=== PATIENT | male | born 1975 | race Two or more races ===

== ENCOUNTER 2021-10-27 12:35 | Emergency (ER) | payer OTHER ==
[2021-10-27] MEDS ORDERED: NORCO 5-325 TA1 EACH PO (17:07)
== END 2021-10-27 17:30 | disposition home or self-care (01) ==
LOC: FER 12:35
DX: S63.8X2A Sprain of other part of left wrist and hand, initial encounter (principal); I10 Essential (primary) hypertension; Z79.899 Other long term (current) drug therapy; X50.9XXA Other and unspecified overexertion or strenuous movements or postures, initial encounter; Y93.89 Activity, other specified; Y92.009 Unspecified place in unspecified non-institutional (private) residence as the place of occurrence of the external cause
CPT/HCPCS: 73090